=== PATIENT | female | born 1980 | race American Indian/Alaskan Native ===

== ENCOUNTER 2021-04-06 08:32 | Emergency (ER) | payer SELFPAY ==
[2021-04-06] MEDS ORDERED: KETOROLAC 30 MG/1 ML INJ IM ONE (10:42)
--- NOTE | 2021-04-06 12:14 | Cat Scan Report ---
CT cervical spine wo con INDICATION: Fall with neck pain and right arm radiculopathy ac. TECHNIQUE: Axial CT images of the cervical spine were obtained. Sagittal and coronal reformatted images were pro duced. All CT scans at this location are performed using CT dose reduction for ALARA by means of auto mated exposure control. COMPARISON: None available. FINDINGS: ALIGNMENT: Reversal of normal stenosis. VERTEBRAE: No fracture. Vertebral body heights are preserved. C1 and C2 are congruent. SPONDYLOSIS: No significant spondylosis. SOFT TISSUES: No significant soft tissue abnormality. ADDITIONAL FINDINGS: Calcification inferior to the anterior C1 arch could be related to sequela of th e longus coli calcific tendinitis.. IMPRESSION: 1. No fracture of the cervical spine. Signer Name: Garrett Angela MD Signed: 04/06/2021 11:59 AM Workstation Name: [id number]
--- NOTE | 2021-04-06 13:07 | Emergency Department Report ---
ED Fall HPI - General Chief Complaint: Back Pain/Injury Stated Complaint: BACK PAIN Time Seen by Provider: 04/06/21 10:39 Source: patient Mode of arrival: Ambulatory - History of Present Illness Initial Comments: The patient was evaluated in the emergency department for symptoms described in the history of present illness. He/she was evaluated in the context of the global COVID-19 pandemic, which necessitated consideration that the patient might be at risk for infection with the virus that causes COVID-19. Institutional protocols and algorithms that pertain to the evaluation of patients at risk for COVID-19 are in a state of rapid change based on information released by regulatory bodies including the CDC and federal and state organizations. These policies and algorithms were followed during the patient's care in the emergency department. Please note that these policies, procedures and recommendations changed on a rapid basis. 40-year-old -[place] female presents to the emergency room stating she had fallen while pulling a box down and fell over a box that was behind her while at work at [employer] yesterday. Patient states that she continued to work but works lower as she needed to finish up her shift. Patient states she usually works a double but was in so much discomfort she decided to go home and rest. She states that she woke up this morning and worsening pain of her right side neck and trapeze and shoulder. Patient states that she was having some numbness down her right arm. She denies any loss of consciousness denies any past medical history and currently takes no meds on a daily basis. Patient reports her last menstrual period was 04/03/2021. Complaint: fall Onset/Timin -: days(s) Fall From: standing When Fall Occurred: 24 hours [employer] Fall Witnessed: yes, by bystander Place Fall Occurred: work Loss of Consciousness: none Prolonged Down Time?: no Location: neck (Right side neck and shoulder) Location - Extremities: Right: Shoulder Severity scale (0 -10): 9 Context: tripped/slipped Associated Symptoms: neck pain, numbness. denies: shortness of breath, abdominal pain, lightheaded - Related Data Previous Rx's Medication Instructions Recorded Last Taken Type Ibuprofen [Motrin 800 MG tab] 800 mg PO Q8HR PRN #30 tablet 04/06/21 Unknown Rx methOCARBAMOL [Robaxin TAB] 500 mg PO BID #30 tab 04/06/21 Unknown Rx traMADoL [Ultram 50 MG tab] 50 mg PO Q6HR PRN #12 tablet 04/06/21 Unknown Rx Allergies Allergy/AdvReac Type Severity Reaction Status Date / Time No Known Allergies Allergy Verified 04/06/21 09:21 ED Review of Systems ROS: Stated complaint: BACK PAIN Other details as noted in HPI Comment: All other systems reviewed and negative ED Past Medical Hx - Medications Home Medications: Home Medications Medication Instructions Recorded Confirmed Last Taken Type Ibuprofen [Motrin 800 MG tab] 800 mg PO Q8HR PRN #30 tablet 04/06/21 Unknown Rx methOCARBAMOL [Robaxin TAB] 500 mg PO BID #30 tab 04/06/21 Unknown Rx traMADoL [Ultram 50 MG tab] 50 mg PO Q6HR PRN #12 tablet 04/06/21 Unknown Rx ED Physical Exam - General Limitations: No Limitations General appearance: alert, in no apparent distress - Head Head exam: Present: atraumatic, normocephalic - Eye Eye exam: Present: normal appearance - ENT ENT exam: Present: mucous membranes moist - Neck Neck exam: Present: tenderness (Cervical tenderness), full ROM, other (Right trapezius tenderness) - Respiratory Respiratory exam: Present: normal lung sounds bilaterally. Absent: respiratory distress - Cardiovascular Cardiovascular Exam: Present: regular rate, normal rhythm. Absent: systolic murmur, diastolic murmur, rubs, gallop - Back Exam Back exam: Present: normal inspection, full ROM - Neurological Exam Neurological exam: Present: alert, oriented X3, normal gait - Psychiatric Psychiatric exam: Present: normal affect, normal mood - Skin Skin exam: Present: warm, dry, intact, normal color. Absent: rash ED Course Vital Signs 04/06/21 09:22 Temperature 98.2 F Pulse Rate 91 H Respiratory 15 Rate Blood Pressure 124/76 O2 Sat by Pulse 99 Oximetry ED Medical Decision Making - Radiology Data Radiology results: report reviewed Study Comments [facility] [address] [place] [address] Cat Scan Report Signed Patient: MARIN DANIEL MR #: [id number] : 1980 Acct:[id number] Age/Sex: 40 / F ADM Date: 04/06/21 Loc: ED Attending Dr: Ordering Physician: TONJA GARCIA Date of Service: 04/06/21 Procedure(s): CT cervical spine wo con Accession Number(s): [id number] cc: TONJA GARCIA CT cervical spine wo con INDICATION: Fall with neck pain and right arm radiculopathy ac. TECHNIQUE: Axial CT images of the cervical spine were obtained. Sagittal and coronal reformatted images were produced. All CT scans at this location are performed using CT dose reduction for ALARA by means of automated exposure control. COMPARISON: None available. FINDINGS: ALIGNMENT: Reversal of normal stenosis. VERTEBRAE: No fracture. Vertebral body heights are preserved. C1 and C2 are congruent. SPONDYLOSIS: No significant spondylosis. SOFT TISSUES: No significant soft tissue abnormality. ADDITIONAL FINDINGS: Calcification inferior to the anterior C1 arch could be related to sequela of the longus coli calcific tendinitis.. IMPRESSION: 1. No fracture of the cervical spine. Signer Name: Garrett Angela MD Signed: 04/06/2021 11:59 AM Workstation Name: [id number] Transcribed By: CS Dictated By: Garrett Angela MD Electronically Authenticated By: Garrett nAgela MD Signed Date/Time: 04/06/21 1159 DD/ 1156 TD/TT: - Medical Decision Making 40-year-old -[place]aur[place] female presents to the emergency room stating she had fallen while pulling a box down and fell over a box that was behind her while at work at [employer] yesterday. Patient states that she continued to work but works lower as she needed to finish up her shift. Patient states she usually works a double but was in so much discomfort she decided to go home and rest. She states that she woke up this morning and worsening pain of her right side neck and trapeze and shoulder. Patient states that she was having some numbness down her right arm. She denies any loss of consciousness denies any past medical history and currently takes no meds on a daily basis. Patient reports her last menstrual period was 04/03/2021. CT scan of cervical neck shows no acute abnormalities. Discussed with patient she may need further evaluation by orthopedic provider. Patient was given a Toradol injection. Patient be discharged home on tramadol ibuprofen and a referral to Dr. Wiley in all spine. Discussed treatment plan with patient verbalized understanding. Critical care attestation.: If time is entered above; I have spent that time in minutes in the direct care of this critically ill patient, excluding procedure time. ED Disposition Clinical Impression: Fall (on) (from) other stairs and steps, initial encounter, Neck pain on right side, Right cervical radiculopathy Disposition: HOME / SELF CARE / HOMELESS Is pt being admited?: No Does the pt Need Aspirin: No Condition: Stable Instructions: Understanding Your Risk for Falls Additional Instructions: CT scan is negative for any acute abnormalities. As as discussed with you nicolette gillespie that she may need further testing and that will need to be done on an outpatient basis. Pain medication and to follow-up with a neurologist as well as a back specialist. Sure to take medication do not operate heavy machinery when taking medication and increase your water intake. Prescriptions: Ibuprofen [Motrin 800 MG tab] 800 mg PO Q8HR PRN #30 tablet PRN Reason: Pain , Severe (7-10) methOCARBAMOL [Robaxin TAB] 500 mg PO BID #30 tab traMADoL [Ultram 50 MG tab] 50 mg PO Q6HR PRN #12 tablet PRN Reason: Pain Referrals: PRIMARY CARE, [Primary Care Provider] - 3-5 Days MARLY WILEY II, MD [Staff Physician] - 3-5 Days Forms: Work/School Release Form(ED) Time of Disposition: 13:15
[2021-04-06 14:16] VITALS: BP 134/82
== END 2021-04-06 14:17 | disposition home or self-care (01) ==
LOC: ED 08:32
DX: M54.2 Cervicalgia (principal); M25.511 Pain in right shoulder; R20.0 Anesthesia of skin; M54.12 Radiculopathy, cervical region; W18.30XA Fall on same level, unspecified, initial encounter; Y93.89 Activity, other specified; Y92.89 Other specified places as the place of occurrence of the external cause; Y99.8 Other external cause status
CPT/HCPCS: 72125; 96372; 99283; J1885

== ENCOUNTER 2021-05-09 12:22 | Emergency (ER) | payer SELFPAY ==
[2021-05-09 13:22] VITALS: BP 120/73
--- NOTE | 2021-05-09 13:50 | Emergency Department Report ---
ED Back Pain/Injury HPI - General Chief Complaint: Back Pain/Injury Stated Complaint: RIGHT SIDED BACK PAIN Time Seen by Provider: 05/09/21 13:29 Source: patient Limitations: No Limitations - History of Present Illness Initial Comments: Patient presents with back pain. This is a tightness in the right side of the back, and the upper back and shoulder area. She had fallen in this area and injured her back while at work about 4 weeks prior. She had been going to work comp. The pain is been improving until today. Today, she was driving when this happened spontaneously. She does not recall twisting or turning in any unusual fashion. There is no lifting when this occurred. Pain does not radiate or migrate. She states that it feels like it is "locked up." She has no chest pain or abdominal pain. There is no shortness of breath. Pain is not pleuritic or positional. - Related Data Previous Rx's Medication Instructions Recorded Last Taken Type Ibuprofen [Motrin 800 MG tab] 800 mg PO Q8HR PRN #30 tablet 04/06/21 Unknown Rx traMADoL [Ultram 50 MG tab] 50 mg PO Q6HR PRN #12 tablet 04/06/21 Unknown Rx methOCARBAMOL [Robaxin TAB] 500 mg PO BID #30 tab 05/09/21 Unknown Rx Allergies Allergy/AdvReac Type Severity Reaction Status Date / Time No Known Allergies Allergy Verified 04/06/21 09:21 ED Review of Systems ROS: Stated complaint: RIGHT SIDED BACK PAIN Other details as noted in HPI Comment: All other systems reviewed and negative Constitutional: denies: fever Eyes: denies: vision change ENT: denies: epistaxis Respiratory: denies: shortness of breath Cardiovascular: denies: chest pain Endocrine: denies: unexplained weight loss Gastrointestinal: denies: abdominal pain Genitourinary: denies: dysuria Musculoskeletal: as per HPI Skin: denies: rash Neurological: denies: numbness Hematological/Lymphatic: denies: easy bruising ED Past Medical Hx - Past Medical History Additional medical history: Prior back injury - Family History Family history: no significant - Medications Home Medications: Home Medications Medication Instructions Recorded Confirmed Last Taken Type Ibuprofen [Motrin 800 MG tab] 800 mg PO Q8HR PRN #30 tablet 04/06/21 Unknown Rx traMADoL [Ultram 50 MG tab] 50 mg PO Q6HR PRN #12 tablet 04/06/21 Unknown Rx methOCARBAMOL [Robaxin TAB] 500 mg PO BID #30 tab 05/09/21 Unknown Rx ED Physical Exam - General Limitations: No Limitations, Other (Pulse ox noted and normal) General appearance: alert, in no apparent distress - Head Head exam: Present: atraumatic, normocephalic - Eye Eye exam: Present: normal appearance, EOMI - ENT ENT exam: Present: normal external ear exam - Neck Neck exam: Present: normal inspection, tenderness (Paraspinous on the right) - Respiratory Respiratory exam: Present: normal lung sounds bilaterally. Absent: respiratory distress - Cardiovascular Cardiovascular Exam: Present: regular rate, normal rhythm - GI/Abdominal GI/Abdominal exam: Present: soft. Absent: tenderness, pulsatile mass - Extremities Exam Extremities exam: Present: normal capillary refill - Back Exam Back exam: Present: paraspinal tenderness (Right thoracic and upper back area). Absent: CVA tenderness (R), CVA tenderness (L) - Neurological Exam Neurological exam: Present: alert, oriented X3, CN II-XII intact, normal gait - Psychiatric Psychiatric exam: Present: normal affect, normal mood - Skin Skin exam: Present: warm, dry ED Course Vital Signs 05/09/21 13:21 Temperature 98.1 F Pulse Rate 88 Respiratory 17 Rate Blood Pressure 120/73 O2 Sat by Pulse 99 Oximetry - Reevaluation(s) Reevaluation #1: 05/09/21 14:18 Patient was discharged ED Medical Decision Making - Medical Decision Making Patient presented with nontraumatic back pain. This is consistent with muscle spasm. She seems to have muscle spasm and tightness on exam. This is in the right trapezius area and upper back area. There is no clavicular tenderness or rib tenderness that would suggest fracture. She had an injury about a month ago, and I am not concerned for any new injury or delayed presentation of an injury. She has no adventitious breath sounds at would suggest pneumothorax or hemothorax. There was no shoulder or arm injury noted. Critical Care Time: No Critical care attestation.: If time is entered above; I have spent that time in minutes in the direct care of this critically ill patient, excluding procedure time. ED Disposition Clinical Impression: Back spasm Disposition: HOME / SELF CARE / HOMELESS Is pt being admited?: No Condition: Stable Instructions: Muscle Cramps and Spasms, [id number] Additional Instructions: Apply ice to your back for 3 days. Then switch to heat. Return for problems. Follow-up with your regular doctor for recheck. Do not drive while taking muscle relaxants. Prescriptions: methOCARBAMOL [Robaxin TAB] 500 mg PO BID #30 tab Referrals: PRIMARY CARE, [Primary Care Provider] - 3-5 Days CHINMAY MERCHANT MD [Staff Physician] - 3-5 Days
== END 2021-05-09 14:55 | disposition home or self-care (01) ==
LOC: ED 12:22
DX: M62.830 Muscle spasm of back (principal); Z98.890 Other specified postprocedural states
CPT/HCPCS: 99282